=== PATIENT | male | born 1965 | race Caucasian/White ===

== ENCOUNTER 2022-07-11 08:31 | Emergency (ER) | payer OTHER ==
[2022-07-11 09:08] LABS: HEMOGLOBIN 10.9 gm/dl (14.0-17.5); RED BLOOD COUNT 3.38 M/UL (4.20-5.50); WHITE BLOOD COUNT 10.8 K/UL (4.5-11.0)
[2022-07-11 09:33] LABS: BUN/CREATININE RATIO 37 (0-10)
== END 2022-07-11 15:35 | disposition short-term general hospital (02) ==
LOC: ER1 08:31
PROVIDERS: Student in an Organized Health Care Education/Training Program
DX: K92.1 Melena (principal); I11.9 Hypertensive heart disease without heart failure
CPT/HCPCS: 80053; 82270; 82550; 82553; 83605; 84484; 85025; 85610; 85730; 86850; 86900; 86901; 93005; 96374; 96375; 96376; 99285; J2270; J2405; Q9967